=== PATIENT | female | born 1965 | race Caucasian/White ===

== ENCOUNTER 2024-06-11 12:21 | Emergency (ER) | payer OTHER, SELFPAY ==
[2024-06-11 12:29] VITALS: BP 125/83; PULSE 75; RESP 18; TEMP 36.9; O2SAT 97; BMI 20.1
--- NOTE | 2024-06-11 12:45 | CRLHL7_ITS ---
For Patients: As a result of the Century Cures Act, medical imaging exams and procedure reports are released immediately into your electronic medical record. You may view this report before your referring provider. If you have questions, please contact your health care provider. Indication: Trauma. Technique: Left ankle, 3 views. Comparison: None. Findings/Impression: Bones: Alignment is normal. No displaced fractures or bone lesions. Joint spaces: Focal soft tissue swelling about the lateral malleolus. Soft tissues: Unremarkable. Dictated by Chau Hayes MD @ 06/11/2024 1:05:49 PM (Electronically Signed)
--- NOTE | 2024-06-11 12:46 | ED_ITS ---
HPI - Extremity Injury (Lower) General Chief Complaint: Extremity Pain/Injury, Lower Stated Complaint: L ankle injury Time Seen by Provider: 06/11/24 12:22 History of Present Illness HPI Narrative: This 58-year-old female comes in with an injury to her left ankle. This morning about 5 hours prior to arrival she was walking around her car and she states her ankle gave out and she fell. She was able to get up and did not have any other injury. She walked around at home and then sat down for a short time. When getting up she felt a pop and had worsening pain. She now has swelling over the lateral malleolus of the left ankle. She is able to ambulate on this injury. Related Data Home Medications ?Medication ?Instructions ?Recorded ?Confirmed atorvastatin .ROUTE 06/11/24 Allergies Allergy/AdvReac Type Severity Reaction Status Date / Time latex Allergy Verified 06/11/24 12:28 Review of Systems Status of ROS: Reports: 10 or more systems reviewed and unremarkable except as noted in History and below Narrative: Constitutional: No fevers, no weight gain or loss. Eyes: No discharge. No vision changes. HENT: No congestion, no sore throat, no ear pain. Cardiovascular: No chest pain, no palpitations. Respiratory: No shortness of breath, no wheezes, no cough. Gastrointestinal: No abdominal pain, no vomiting, no diarrhea. Genitourinary: No dysuria, no hematuria. Musculoskeletal: Left ankle injury as described above. Skin: No rashes, no pruritis. Neurological: No dizziness, weakness, sensory change, speech change. Endo/Heme/Allergies: No bruising or bleeding. No polydipsia. Pysch: no suicidality, no anxiety, no insomnia. All other systems reviewed and are negative. PFSH [facility] Social History Smoking Status: Never smoker How often do you have a drink containing alcohol: 2-4 times a month AUDIT-C Alcohol total score: 2 Non-prescribed substance use: denies use Exam Narrative: Exam Narrative: Constitutional: Well-developed, well-nourished, no acute distress. HEENT: Normocephalic, atraumatic. Neck: Normal range of motion. Nontender. Supple. Heart: Intact distal pulses. Lungs: No chest discomfort. No wheezes, rhonchi, or rales. Abdomen: Nontender. Back: Normal range of motion. Extremities: Swelling over the lateral malleolus of the left ankle. No ligament instability. No joint effusion. No tenderness when palpating over the medial malleolus. Skin: Intact. No rash. Warm. No erythema or pallor. Neurologic: No altered sensation. No weakness. Alert and oriented. Psychiatric: No suicidality. No anxiety or depression. No insomnia. Nursing notes and vitals signs are reviewed. Const: Vital Signs, click to edit/add: Vital Signs - 24 hr 06/11/24 12:29 Temperature 98.4 F Pulse Rate [Pulse Oximeter] 75 Respiratory Rate 18 Blood Pressure [Ri t Upper Arm] 125/83 Pulse Oximetry 97 Oxygen Delivery Me thod Room Air Course Vital Signs Vital signs: Initial Vital Signs Temperature 98.4 F 06/11/24 12:29 Temperature Source Temporal Artery Scan 06/11/24 12:29 Pulse Rate 75 06/11/24 12:29 Pulse Rhythm Regular 06/11/24 12:29 Respiratory Rate 18 06/11/24 12:29 Blood Pressure 125/83 06/11/24 12:29 Blood Pressure Mean 97 06/11/24 12:29 Blood Pressure Position Supine 06/11/24 12:29 Pulse Oximetry 97 06/11/24 12:29 Oxygen Delivery Method Room Air 06/11/24 12:29 Vital Signs Temperature 98.4 F 06/11/24 12:29 Pulse Rate 75 06/11/24 12:29 Respiratory Rate 18 06/11/24 12:29 Blood Pressure 125/83 06/11/24 12:29 Pulse Oximetry 97 06/11/24 12:29 Oxygen Delivery Method Room Air 06/11/24 12:29 Temperature 98.4 F 06/11/24 12:29 Pulse Rate 75 06/11/24 12:29 Respiratory Rate 18 06/11/24 12:29 Blood Pressure 125/83 06/11/24 12:29 Pulse Oximetry 97 06/11/24 12:29 Oxygen Delivery Method Room Air 06/11/24 12:29 MDM - Extremity Injury (Lower) MDM Narrative Medical decision making narrative: This patient comes in with an injury to her left ankle as described above. X- ray imaging by my review and according to radiology report showed no bony abnormalities. The patient was reassured with this information. She does have an ankle sprain but her ankle is not unstable and there is no joint effusion. I did encourage early activity as tolerated. I did also offer crutches which she declined. Imaging Data XR L Ankle: Radiologist's impression: Findings/Impression: Bones: Alignment is normal. No displaced fractures or bone lesions. Joint spaces: Focal soft tissue swelling about the lateral malleolus. Soft tissues: Unremarkable. Discharge Plan Discharge Clinical Impression: Ankle sprain and strain Patient Disposition: Home, Self-Care Condition: Stable Additional Instructions: Increase activity as tolerated. Use [id number] medicines also as needed and directed. Follow up with MD or return if worsening. Prescriptions: No Action atorvastatin .ROUTE Follow Up/Referrals: Alisia Omalley MD [Primary Care Provider] - Stand Alone Forms: [employer] Info Instructions
== END 2024-06-11 13:50 | disposition home or self-care (01) ==
PROVIDERS: Emergency Provider Emergency Medicine Emergency Medical Services; PCP Family Medicine
DX: S93.402A Sprain of unspecified ligament of left ankle, initial encounter (principal); W19.XXXA Unspecified fall, initial encounter
CPT/HCPCS: 73610; 99283; 99284